=== PATIENT | female | born 1960 | race Caucasian/White ===

== ENCOUNTER 2016-08-29 08:00 | Outpatient (CLI) | payer MEDICAID | END 2016-08-29 08:01 | disposition home or self-care (01) | DX: E11.9 Type 2 diabetes mellitus without complications (principal); I10 Essential (primary) hypertension; E89.0 Postprocedural hypothyroidism ==

== ENCOUNTER 2016-12-14 08:00 | Outpatient (CLI) | payer MEDICAID ==
[2016-12-14 19:29] LABS: CALCIUM 9.3 mg/dL (8.5-10.3); CREATININE 0.7 mg/dL (0.4-1.0); POTASSIUM 4.1 mmol/L (3.5-5.0)
[2016-12-14 19:41] LABS: HEMOGLOBIN A1C 1.1 g/dL
[2016-12-14 20:27] LABS: BASOPHILS % (AUTO) 0.8 %; EOSINOPHILS # (AUTO) 0.1 10^3/uL (0.0-0.7); EOSINOPHILS % (AUTO) 1.7 %; HCT - HEMATOCRIT 41.1 % (37.0-47.0); HGB - HEMOGLOBIN 13.6 g/dL (12.0-16.0); LYMPHOCYTES # (AUTO) 1.9 10^3/uL (1.5-3.5); MEAN CORPUSCULAR HEMOGLOBIN 30.5 pg (27.0-31.0); MEAN CORPUSCULAR HGB CONC 33.1 g/dL (32.0-36.0); MEAN CORPUSCULAR VOLUME 92.1 fL (81.0-99.0); MEAN PLATELET VOLUME 10.8 fL (7.9-10.8); MONOCYTES # (AUTO) 0.3 10^3/uL (0.0-1.0); MONOCYTES % (AUTO) 5.7 %; NEUTROPHILS # (AUTO) 2.5 10^3/uL (1.5-6.6); NEUTROPHILS % (AUTO) 51.8 %; NUCLEATED RED BLOOD CELLS AUTO 0.1 /100WBC; RED BLOOD COUNT 4.46 10^6/uL (4.20-5.40); RED CELL DISTRIBUTION WIDTH 13.4 % (12.0-15.0); UNCORRECTED WHITE BLOOD COUNT 4.8 x10^3/uL; WHITE BLOOD COUNT 4.8 x10^3/uL (4.8-10.8)
== END 2016-12-14 23:59 ==
LOC: LAB.N 08:00
PROVIDERS: ATTEND Physician Assistant
DX: E66.01 Morbid (severe) obesity due to excess calories (principal); E11.9 Type 2 diabetes mellitus without complications; I25.10 Atherosclerotic heart disease of native coronary artery without angina pectoris; I10 Essential (primary) hypertension; E89.0 Postprocedural hypothyroidism; Z85.850 Personal history of malignant neoplasm of thyroid
CPT/HCPCS: 36415; 80048; 82043; 83036; 84443; 85025

== ENCOUNTER 2017-09-04 15:52 | Emergency (ER) | payer MEDICAID, OTHER ==
[2017-09-04 16:15] VITALS: BP 145/90
--- NOTE | 2017-09-04 17:03 | ED Physician Documentation ---
History of Present Illness - Stated complaint Stated Complaint: LT LEG PX - Chief complaint Chief Complaint: Ext Problem - History obtained from History obtained from: Patient - History of Present Illness Timing: Other (She woke 2 days ago with left hip pain that is sharp and worse with walking. There is no associated back pain or weakness, numbness, or tingling. About a week ago also she fell against a garbage can and hit her right chest wall. She was seen at an urgent care at [facility] and had this evaluated. She did not know the results of the x-rays, the hip was normal, the chest/ribs showed a 10th rib fracture, this was reviewed on the [facility] system. 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 - Present Medications Home Medications: Ambulatory Orders Medication Instructions Recorded Confirmed Levothyroxine [Synthroid] 175 mcg PO DAILY 01/08/14 10/06/14 FLUoxetine [PROzac] 20 mg PO DAILY 04/10/14 10/06/14 Nitroglycerin 0.4 mcg SL PRN 04/10/14 10/06/14 Aspirin [Aspir 81] 81 mg PO DAILY 10/03/14 10/06/14 Atorvastatin [Lipitor] 40 mg PO DAILY 10/03/14 10/06/14 Glipizide [Glipizide ER] 15 mg PO DAILY 10/03/14 10/06/14 Insulin Glargine [Lantus] 13 unit SUBQ QPM 10/03/14 10/06/14 Lisinopril 5 mg PO DAILY 10/03/14 10/06/14 Metformin HCl 1,000 mg PO BID 10/03/14 10/06/14 Oxycodone HCl/Acetaminophen 1 - 2 each PO Q6H PRN #15 tablet 10/06/14 10/08/14 [Percocet 5-325 mg Tablet] Omeprazole 20 mg PO DAILY 10/08/14 10/08/14 Meloxicam [Mobic] 7.5 mg PO BIDWM PRN #15 tablet 09/04/17 - Allergies Allergies/Adverse Reactions: Allergies Allergy/AdvReac Type Severity Reaction Status Date / Time ondansetron HCl * Allergy Emesis Verified 09/04/17 16:14 [From Zofran] Penicillins Allergy Rash Verified 09/04/17 16:14 - Social History Does the pt smoke?: No Smoking Status: Never smoker Does the pt drink ETOH?: No Does the pt have substance abuse?: No - Immunizations Immunizations are current?: Yes - POLST Patient has POLST: No PD ED PE NORMAL - Vitals Vital signs reviewed: Yes - General General: Alert and oriented X 3, No acute distress - Extremities Extremities: Other (Left hip is nontender but she does have pain with external rotation, The patient has equal and normal Achilles and patellar reflexes bilaterally. Normal sensation in all areas of the legs. Patient denies saddle anesthesia. Normal strength in flexion-extension at the ankles, knees, and flexion of the hips.) - Neuro Neuro: Alert and oriented X 3, Normal speech - Psych Psych: Normal mood, Normal affect Results - Vitals Vitals: Vital Signs - 24 hr 09/04/17 16:10 Temperature 36.7 C Heart Rate 65 Respiratory 16 Rate Blood Pressure 145/90 H O2 Saturation 96 Oxygen O2 Source Room air PD MEDICAL DECISION MAKING - ED course ED course: She returns today from the urgent care because she does not know where her prescriptions are, she has the paper prescription for the hydrocodone and I pointed out that it looks like the Flexeril had been called into a local pharmacy and she can fill it. I will add a anti-inflammatory and she needs a work note and referral to orthopedics as well. Departure - Departure Disposition: 01 Home, Self Care Clinical Impression: Hip pain, left Right rib fracture Qualifiers: Encounter type: initial encounter Rib fracture type: single rib Fracture type: closed Qualified Code(s): S22.31XA - Fracture of one rib, right side, initial encounter for closed fracture Condition: Good Record reviewed to determine appropriate education?: Yes Instructions: ED Fx Rib, Osteoarthritis Common Sites Follow-Up: [facility] [Provider Group] Prescriptions: Meloxicam [Mobic] 7.5 mg PO BIDWM PRN #15 tablet PRN Reason: Pain Comments: Your blood pressure was elevated today on check into the emergency department. This does not mean that you have hypertension, it is a common phenomenon to come to the emergency department and have elevated blood pressure. I recommend that you see your primary care physician within the week to have it rechecked when you are feeling better. Forms: Activity restrictions
== END 2017-09-04 17:15 | disposition home or self-care (01) ==
LOC: ED 15:52
DX: M25.552 Pain in left hip (principal); S22.31XA Fracture of one rib, right side, initial encounter for closed fracture; W18.30XA Fall on same level, unspecified, initial encounter; E11.9 Type 2 diabetes mellitus without complications; E03.9 Hypothyroidism, unspecified; Z79.84 Long term (current) use of oral hypoglycemic drugs; Z79.82 Long term (current) use of aspirin; Z79.4 Long term (current) use of insulin
CPT/HCPCS: 99283

== ENCOUNTER 2018-06-22 14:47 | Outpatient (CLI) | payer OTHER ==
[2018-06-22 19:17] LABS: BASOPHILS % (AUTO) 0.7 %; EOSINOPHILS # (AUTO) 0.1 10^3/uL (0.0-0.7); EOSINOPHILS % (AUTO) 1.4 %; HGB - HEMOGLOBIN 14.1 g/dL (12.0-16.0); LYMPHOCYTES # (AUTO) 2.3 10^3/uL (1.5-3.5); LYMPHOCYTES % (AUTO) 39.1 %; MEAN CORPUSCULAR HEMOGLOBIN 33.2 pg (27.0-31.0); MEAN CORPUSCULAR HGB CONC 34.3 g/dL (32.0-36.0); MEAN PLATELET VOLUME 10.4 fL (7.9-10.8); MONOCYTES # (AUTO) 0.3 10^3/uL (0.0-1.0); MONOCYTES % (AUTO) 5.9 %; NEUTROPHILS # (AUTO) 3.1 10^3/uL (1.5-6.6); NEUTROPHILS % (AUTO) 52.9 %; PLT - PLATELET COUNT 218 10^3/uL (130-450); RED BLOOD COUNT 4.23 10^6/uL (4.20-5.40); RED CELL DISTRIBUTION WIDTH 12.8 % (12.0-15.0); WHITE BLOOD COUNT 5.9 x10^3/uL (4.8-10.8)
[2018-06-22 19:32] LABS: CALCIUM 8.8 mg/dL (8.5-10.3); CREATININE 0.8 mg/dL (0.4-1.0)
[2018-06-22 20:18] LABS: HB2 TOTAL 15.2 g/dL; HEMOGLOBIN A1C 1.21 g/dL; HEMOGLOBIN A1C % 9.4 % (4.6-6.2)
== END 2018-06-22 23:59 ==
LOC: LAB.N 14:47
PROVIDERS: ATTEND Physician Assistant Medical
DX: I20.1 Angina pectoris with documented spasm (principal); B07.9 Viral wart, unspecified; E11.9 Type 2 diabetes mellitus without complications; I25.10 Atherosclerotic heart disease of native coronary artery without angina pectoris; I10 Essential (primary) hypertension; E89.0 Postprocedural hypothyroidism; F32.9 Major depressive disorder, single episode, unspecified
CPT/HCPCS: 36415; 80048; 83036; 84443; 85025

== ENCOUNTER 2019-02-20 08:21 | Outpatient (CLI) | payer OTHER ==
--- NOTE | 2019-02-20 14:38 | XRAY Report ---
Reason: HEEL PAIN R Procedure Date: 02/20/2019 Accession Number: [id number] / [id number] Procedure: XRN - Foot 2 View RT CPT Code: FULL RESULT: EXAM: RIGHT FOOT RADIOGRAPHY EXAM DATE: 02/20/2019 08:57 AM. CLINICAL HISTORY: Right heel pain. COMPARISON: None. TECHNIQUE: 2 views. FINDINGS: Bones: Moderate inferior calcaneal and moderate posterior calcaneal spurring is noted. No fractures or bone lesions. Joints: Normal. No subluxations. Soft Tissues: There are subtle calcifications in the region of the Achilles tendon near the insertion. IMPRESSION: Posterior calcaneal spurring and subtle calcifications in the region of the distal Achilles tendon, correlate to focal tenderness for enthesopathy, tendinitis or retrocalcaneal bursitis. Inferior calcaneal spurring, can be seen with plantar enthesopathy. RADIA
== END 2019-02-20 08:22 | disposition home or self-care (01) ==
LOC: DI.N 08:21
PROVIDERS: ATTEND Physician Assistant Medical
DX: M77.31 Calcaneal spur, right foot (principal)

== ENCOUNTER 2019-05-15 11:21 | Outpatient (CLI) | payer OTHER ==
[2019-05-15 18:53] LABS: BASOPHILS % (AUTO) 0.5 %; EOSINOPHILS # (AUTO) 0.1 10^3/uL (0.0-0.7); EOSINOPHILS % (AUTO) 1.1 %; HGB - HEMOGLOBIN 14.5 g/dL (12.0-16.0); LYMPHOCYTES # (AUTO) 1.8 10^3/uL (1.5-3.5); LYMPHOCYTES % (AUTO) 21.5 %; MEAN CORPUSCULAR HEMOGLOBIN 32.2 pg (27.0-31.0); MEAN CORPUSCULAR HGB CONC 32.9 g/dL (32.0-36.0); MEAN CORPUSCULAR VOLUME 97.8 fL (81.0-99.0); MEAN PLATELET VOLUME 12.5 fL (7.9-10.8); MONOCYTES # (AUTO) 0.5 10^3/uL (0.0-1.0); MONOCYTES % (AUTO) 6.5 %; NEUTROPHILS # (AUTO) 5.8 10^3/uL (1.5-6.6); NEUTROPHILS % (AUTO) 69.9 %; PLT - PLATELET COUNT 237 10^3/uL (130-450); RED BLOOD COUNT 4.51 10^6/uL (4.20-5.40); WHITE BLOOD COUNT 8.3 x10^3/uL (4.8-10.8)
[2019-05-15 19:22] LABS: CREATININE 0.7 mg/dL (0.4-1.0)
[2019-05-15 19:46] LABS: HB2 TOTAL 15.5 g/dL; HEMOGLOBIN A1C 1.38 g/dL; HEMOGLOBIN A1C % 10.3 % (4.6-6.2)
== END 2019-05-15 23:59 | disposition home or self-care (01) ==
LOC: LAB.N 11:21
PROVIDERS: ATTEND Physician Assistant Medical
DX: E11.9 Type 2 diabetes mellitus without complications (principal); E89.0 Postprocedural hypothyroidism
CPT/HCPCS: 36415; 80048; 83036; 85025

== ENCOUNTER 2019-07-24 20:49 | Emergency (ER) | payer OTHER ==
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
[2019-07-24] MEDS ORDERED: LORazepam 2 MG/ML VIAL IVP STA (21:42)
[2019-07-24] MEDS ORDERED: NITROGLYCERIN SL 0.4 MG TABLET SL STA (21:43)
[2019-07-24 21:54] LABS: BASOPHILS # (AUTO) 0.1 10^3/uL (0.0-0.1); BASOPHILS % (AUTO) 0.6 %; EOSINOPHILS # (AUTO) 0.1 10^3/uL (0.0-0.7); HGB - HEMOGLOBIN 14.2 g/dL (12.0-16.0); LYMPHOCYTES # (AUTO) 3.6 10^3/uL (1.5-3.5); LYMPHOCYTES % (AUTO) 38.1 %; MEAN CORPUSCULAR VOLUME 97.2 fL (81.0-99.0); MEAN PLATELET VOLUME 12.1 fL (7.9-10.8); MONOCYTES # (AUTO) 0.5 10^3/uL (0.0-1.0); MONOCYTES % (AUTO) 5.3 %; NEUTROPHILS # (AUTO) 5.1 10^3/uL (1.5-6.6); NEUTROPHILS % (AUTO) 54.6 %; PLT - PLATELET COUNT 248 10^3/uL (130-450); WHITE BLOOD COUNT 9.4 x10^3/uL (4.8-10.8)
[2019-07-24 22:08] LABS: ALBUMIN 4.2 g/dL (3.2-5.5); ALBUMIN/GLOBULIN RATIO 1.1 (1.0-2.2); BILIRUBIN,TOTAL 0.8 mg/dL (0.2-1.0); CREATININE 0.9 mg/dL (0.4-1.0); TOTAL PROTEIN 8.2 g/dL (6.7-8.2)
--- NOTE | 2019-07-24 22:29 | XRAY Report ---
Reason: chest pain Procedure Date: 07/24/2019 Accession Number: [id number] / [id number] Procedure: XR - Chest 1 View X-Ray CPT Code: 26158 Final Report FULL RESULT: EXAM: CHEST RADIOGRAPHY EXAM DATE: 07/24/2019 09:55 PM. CLINICAL HISTORY: Chest pain. COMPARISON: CHEST 2 VIEW PA/LAT 10/03/2014 11:21 AM. TECHNIQUE: 1 view. FINDINGS: Lungs/Pleura: No focal opacities evident. No pleural effusion. No pneumothorax. Mediastinum: Within exam limitations, the cardiomediastinal contour is normal. Other: None. IMPRESSION: Clear lungs. RADIA
[2019-07-24] MEDS ORDERED: NITROGLYCERIN 2% PASTE TOP STA (23:00)
[2019-07-24] MEDS ORDERED: HEPARIN 5,000 UNIT/ML VIAL IVP STA (23:00)
[2019-07-24] MEDS ORDERED: HEPARIN 25000UNITS/500ML (D5W) 25,000 UNIT/500 ML BAG IV STA (23:00)
[2019-07-24 23:40] VITALS: BP 112/78
== END 2019-07-24 23:50 | disposition short-term general hospital (02) ==
LOC: ED 20:49
DX: I21.4 Non-ST elevation (NSTEMI) myocardial infarction (principal); F43.9 Reaction to severe stress, unspecified; I25.2 Old myocardial infarction; E11.9 Type 2 diabetes mellitus without complications; Z79.4 Long term (current) use of insulin; Z79.82 Long term (current) use of aspirin
CPT/HCPCS: 36415; 71045; 80053; 83690; 84484; 85025; 93005; 96374; 96375; 99284; 99285; A9270; J2060

== ENCOUNTER 2019-07-24 23:52 | Outpatient (CLI) | payer OTHER | END 2019-07-24 23:59 | disposition short-term general hospital (02) | LOC: EMS 23:52 | PROVIDERS: ATTEND Surgery | DX: I21.4 Non-ST elevation (NSTEMI) myocardial infarction (principal) | CPT/HCPCS: A0425; A0426 ==

== ENCOUNTER 2023-06-14 11:40 | Outpatient (CLI) | payer OTHER ==
[2023-06-14 18:35] LABS: BILIRUBIN,URINE NEGATIVE (NEGATIVE); GLUCOSE, URINE (UA) >=1000 mg/dL (NEGATIVE); KETONES,URINE (UA) NEGATIVE (NEGATIVE); LEUKOCYTE ESTERASE, URINE NEGATIVE (NEGATIVE); NITRITE,URINE NEGATIVE (NEGATIVE); OCCULT BLOOD,URINE NEGATIVE (NEGATIVE); PH,URINE 5.5 PH (5.0-7.5); PROTEIN,URINE NEGATIVE (NEGATIVE); UROBILINOGEN,URINE 0.2 (NORMAL) E.U./dL (NORMAL)
[2023-06-14 18:42] LABS: CLARITY,URINE CLEAR (CLEAR)
[2023-06-14 19:13] LABS: BACTERIA,URINE Rare /HPF (None Seen); RBC,URINE 0-5 /HPF (0-5); SQUAMOUS EPITHELIAL CELL,UR FEW Squamous (<= Few)
[2023-06-15 07:10] LABS: HBsAG SCREEN Negative (Negative); HEPATITIS B CORE IGM AB Negative (Negative); HEPATITIS B SURFACE AB QUANT 559.9 mIU/mL (Immunity>9.9)
== END 2023-06-14 11:41 | disposition home or self-care (01) ==
LOC: LAB.N 11:40
PROVIDERS: ATTEND Physician Assistant
DX: N39.3 Stress incontinence (female) (male) (principal); Z11.59 Encounter for screening for other viral diseases
CPT/HCPCS: 36415; 81001; 86317; 86705; 87086; 87340